=== PATIENT | male | born 1980 | race Hispanic/Latino ===

== ENCOUNTER 2018-03-11 23:55 | Emergency (ER) | payer SELFPAY ==
[2018-03-12 00:06] VITALS: BMI 31.8
[2018-03-12 00:10] VITALS: RESP 19; TEMP 98.3
--- NOTE | 2018-03-12 00:23 | ED PDOC ---
Arrival/HPI - General Chief Complaint: Anxiety Time Seen by Provider: 03/12/18 00:10 Historian: Patient - History of Present Illness Narrative History of Present Illness (Text): 03/12/18 00:20 37 year old male, with no significant past medical history, presents to the emergency department for evaluation status post panic attack. Patient states he had just gotten off work and was walking to his car. Patient states he then beg an feeling shortness of breath and chest tightness. Patient also informs of numbness and tingling in his feet at the time. Patient denies any fevers, chills, headache, dizziness, cough, abdominal pain, nausea, vomiting, diarrhea, back pain, neck pain, urinary/bowel changes, or any other complaint. Time/Duration: Prior to Arrival Quality: Tightness Context: Work Past Medical History - Provider Review Nursing Documentation Reviewed: Yes - Infectious Disease Hx of Infectious Diseases: None - Cardiac Hx Hypertension: Yes - Psychiatric Hx Panic Disorder: Yes Hx Substance Use: Yes (marijuana) - Anesthesia Hx Anesthesia: No Family/Social History - Physician Review Nursing Documentation Reviewed: Yes Family/Social History: No Known Family HX Smoking Status: Never Smoked Hx Alcohol Use: Yes Frequency of alcohol use: Socially Hx Substance Use: Yes (marijuana) Allergies/Home Meds Allergies/Adverse Reactions: Allergies No Known Allergies Allergy (Verified 03/12/18 00:10) Home Medications: Home Meds Medication Instructions Recorded Confirmed RX: Unobtainable 03/12/18 03/12/18 Review of Systems - Physician Review All systems were reviewed & negative as marked: Yes - Review of Systems Constitutional: absent: Fevers, Night Sweats Respiratory: SOB. absent: Cough Cardiovascular: Chest Pain (chest tightness) Gastrointestinal: absent: Abdominal Pain, Diarrhea, Nausea, Vomiting Genitourinary Male: absent: Urinary Output Changes Musculoskeletal: absent: Back Pain, Neck Pain Neurological: Other (numbness and tingling in feet). absent: Headache, Dizziness Physical Exam Vital Signs Reviewed: Yes Vital Signs Temp Pulse Resp BP Pulse Ox 03/12/18 00:06 98.3 F 103 H 19 152/112 H 97 Temperature: Afebrile Blood Pressure: Hypertensive Pulse: Tachycardic Respiratory Rate: Normal Appearance: Positive for: Well-Appearing, Non-Toxic, Comfortable Pain Distress: None Mental Status: Positive for: Alert and Oriented X 3 - Systems Exam Head: Present: Atraumatic, Normocephalic Pupils: Present: PERRL Extroacular Muscles: Present: EOMI Conjunctiva: Present: Normal Mouth: Present: Moist Mucous Membranes Neck: Present: Normal Range of Motion Respiratory/Chest: Present: Clear to Auscultation, Good Air Exchange. No: Respiratory Distress, Accessory Muscle Use Cardiovascular: Present: Regular Rate and Rhythm, Normal S1, S2. No: Murmurs Abdomen: No: Tenderness, Distention, Peritoneal Signs Back: Present: Normal Inspection Upper Extremity: Present: Normal Inspection. No: Cyanosis, Edema Lower Extremity: Present: Normal Inspection. No: Edema Neurological: Present: Speech Normal Skin: Present: Warm, Dry, Normal Color. No: Rashes Psychiatric: Present: Alert, Oriented x 3, Normal Insight, Normal Concentration Medical Decision Making ED Course and Treatment: 03/12/18 00:25 Impression: 37 year old male presents for evaluation status post panic attack Plan: -- Ativan -- Reassess and disposition Progress Notes: - EKG Interpretation EKG Interpretation (Text): 03/12/18 01:10 sinus tachycardia rate 113 nssts changes - Medication Orders Current Medication Orders: Discontinued Medications Lorazepam (Ativan) 1 mg PO ONCE ONE; Protocol Stop: 03/12/18 00:15 - Scribe Statement The provider has reviewed the documentation as recorded by the Brennan Alonzo Provider Scribe Attestation: All medical record entries made by the Scribe were at my direction and personally dictated by me. I have reviewed the chart and agree that the record accurately reflects my personal performance of the history, physical exam, medical decision making, and the department course for this patient. I have also personally directed, reviewed, and agree with the discharge instructions and disposition. Disposition/Present on Arrival - Present on Arrival Any Indicators Present on Arrival: No History of DVT/PE: No History of Uncontrolled Diabetes: No Urinary Catheter: No History of Decub. Ulcer: No History Surgical Site Infection Following: None - Disposition Have Diagnosis and Disposition been Completed?: Yes Diagnosis: Anxiety Disposition: HOME/ ROUTINE Disposition Time: 01:00 Condition: IMPROVED Discharge Instructions (ExitCare): Anxiety, Adult (DC) Forms: [employer] (Bengali)
[2018-03-12 01:08] VITALS: BP 149/90; PULSE 88; O2SAT 99
--- NOTE | 2018-03-12 09:57 | CARD ---
APPROVED REPORT Date of service: 03/11/2018 EKG Measurement Heart [id number] <Conclusion> Sinus tachycardia Possible Left atrial enlargement Left ventricular hypertrophy Abnormal ECG
== END 2018-03-12 01:06 | disposition home or self-care (01) ==
LOC: ED 23:55 → MERGE 23:55 → ED 03-12 01:06
DX: F41.9 Anxiety disorder, unspecified (principal); I10 Essential (primary) hypertension